=== PATIENT | female | born 1970 | race Two or more races ===

== ENCOUNTER 2020-01-05 10:57 | Day surgery (SDC) | payer OTHER ==
[~2020-01-05 10:57] MED LIST: CYMBALTA20 MG PO; GABAPENTIN300 M2 PO; NABUMETONE750 MG PO; SULFAZINE EC500 MG PO
== END 2020-01-05 21:06 | disposition home or self-care (01) ==
LOC: CIR.AMB 10:57
PROVIDERS: ATTEND Obstetrics & Gynecology Obstetrics
DX: N72 Inflammatory disease of cervix uteri (principal); Z20.828 Contact with and (suspected) exposure to other viral communicable diseases